=== PATIENT | female | born 1960 | race Caucasian/White ===

== ENCOUNTER 2016-08-29 15:57 | Emergency (ER) | payer BC ==
[2016-08-29 16:07] VITALS: BP 144/88
[2016-08-29] MEDS ORDERED: Ketorolac 60 MG/2 ML SDV IM ONE (16:34)
[2016-08-29] MEDS ORDERED: Dexamethasone 10 MG/ML SDV IM ONE (16:34)
--- NOTE | 2016-08-29 16:46 | EDM.PDOC ---
ED HPI GENERAL MEDICAL PROBLEM - General Chief Complaint: Back Pain or Injury Stated Complaint: BACK PAIN Time Seen by Provider: 08/29/16 16:33 Source of Information: Reports: Patient History Limitations: Reports: No Limitations - History of Present Illness INITIAL COMMENTS - FREE TEXT/NARRATIVE: PT STATES WHILE TRYING TO GET UP FROM RECLINER THIS AFTERNOON, SHE FELT PAIN IN LOWER BACK RADIATING TO LEFT LEG AT KNEE. DENIES FALL, ABD PAIN, OR LEG SWELLING. ADMITS TO EXCESSIVE WALKING AND FAVORING RIGHT LEG AND USING LEFT MORE. DENIES SADDLE ANESTHESIA, BOWEL OR BLADDER INCONT. Onset: Today Duration: Hour(s): Location: Reports: Back Quality: Reports: Ache, Other (SHOOTING) Severity: Mild Improves with: Reports: None Worsens with: Reports: Movement Context: Reports: Activity Associated Symptoms: Reports: No Other Symptoms Treatments RESPIRATORY SERVICES MANAGER: Reports: Other Medication(s) Left Lower Back Pain Score (Numeric/FACES): 10 - Related Data Allergies Allergy/AdvReac Type Severity Reaction Status Date / Time codeine Allergy Cannot Verified 08/29/16 16:05 Remember Home Meds: Home Meds Levothyroxine 75 mcg PO ACBREAKFAST 07/06/14 [History] Omeprazole [Prilosec] 20 mg PO DAILY 07/06/14 [History] Latanoprost [Latanoprost] 1 drop EYEBOTH BEDTIME 08/29/16 [History] Past Medical History HEENT History: Reports: Sinusitis Gastrointestinal History: Reports: GERD Musculoskeletal History: Reports: Back Pain, Chronic, Fracture, Other (See Below ) Other Musculoskeletal History: Broke both ankles when younger Neurological History: Reports: Concussion, Head Trauma Endocrine/Metabolic History: Reports: Hypothyroidism Hematologic History: Reports: Anesthesia Reaction, Blood Transfusion(s), Other ( See Below) Other Hematologic History: Throws up with anesthesia - Infectious Disease History Infectious Disease History: Reports: Chicken Pox, Influenza - Past Surgical History Head Surgeries/Procedures: Reports: None HEENT Surgical History: Reports: None GI Surgical History: Reports: Cholecystectomy Endocrine Surgical History: Reports: None Neurological Surgical History: Reports: None Musculoskeletal Surgical History: Reports: None Dermatological Surgical History: Reports: None Social & Family History - Family History Family Medical History: Noncontributory - Tobacco Use Smoking Status *Q: Former Smoker Years of Tobacco use: 10 Used Tobacco, but Quit: Yes Month Tobacco Last Used: october Second Hand Smoke Exposure: No - Caffeine Use Caffeine Use: Reports: Coffee - Alcohol Use Days Per Week of Alcohol Use: 0 - Recreational Drug Use Recreational Drug Use: No - Living Situation & Occupation Occupation: Employed ED ROS GENERAL - Review of Systems Review Of Systems: ROS reveals no pertinent complaints other than HPI. Constitutional: Reports: No Symptoms HEENT: Reports: No Symptoms Respiratory: Reports: No Symptoms Cardiovascular: Reports: No Symptoms Endocrine: Reports: No Symptoms GI/Abdominal: Reports: No Symptoms : Reports: No Symptoms Musculoskeletal: Reports: Back Pain, Leg Pain (LEFT) Skin: Reports: No Symptoms Neurological: Reports: No Symptoms Psychiatric: Reports: No Symptoms Hematologic/Lymphatic: Reports: No Symptoms Immunologic: Reports: No Symptoms ED EXAM,LOWER BACK PAIN/INJURY - Physical Exam Exam: See Below Exam Limited By: No Limitations General Appearance: Alert, WD/WN, No Apparent Distress Throat/Mouth: Normal Inspection, Normal Oropharynx, No Airway Compromise Respiratory/Chest: No Respiratory Distress GI/Abdominal: Normal Bowel Sounds, Soft, Non-Tender Back Exam: Paraspinal Tenderness (LEFT). No: CVA Tenderness (L), CVA Tenderness (R), Vertebral Tenderness Extremities: Normal Inspection, No Pedal Edema, Normal Capillary Refill Neurological: Alert, Normal Mood/Affect, Normal Dorsiflexion, Normal Plantar Flexion, No Motor/Sensory Deficits, Oriented x 3 Psychiatric: Normal Affect, Normal Mood Skin Exam: Warm, Dry, Intact, Normal Color, No Rash Lymphatic: No Adenopathy Course - Vital Signs Last Recorded V/S: Last Vital Signs Temp 98.5 F 08/29/16 16:01 Pulse 96 08/29/16 16:01 Resp 16 08/29/16 16:01 BP 144/88 H 08/29/16 16:01 Pulse Ox 96 08/29/16 16:01 - Orders/Labs/Meds Meds: Medications Discontinued Medications Generic Name Dose Route Start Last Admin Trade Name Chip PRN Reason Stop Dose Admin Dexamethasone 8 mg 08/29/16 16:34 Dexamethasone IM 08/29/16 16:35 ONETIME ONE Ketorolac Tromethamine 60 mg 08/29/16 16:34 Toradol IM 08/29/16 16:35 ONETIME ONE Departure - Departure Time of Disposition: 16:53 Disposition: Home, Self-Care 01 Condition: good Clinical Impression: Back pain of lumbar region with sciatica - Discharge Information Instructions: Back Pain, Adult, [id number], Radicular Pain Forms: ED Department Discharge Additional Instructions: FOLLOW UP WITH YOUR PCP TO SCHEDULE LUMBAR MRI - Assessment/Plan Assessment:: LUMBAR PAIN WITH RADICULOPATHY TO LLE Plan: ANTIINFLAMMATORY/ICE / MRI REFERRAL BY PCP
[2016-08-29] MEDS ORDERED: predniSONE 20 MG Tab ONE (16:59)
[2016-08-29] MEDS ORDERED: predniSONE 20 MG Tab PO ONE (17:01)
== END 2016-08-29 17:15 | disposition home or self-care (01) ==
LOC: KA.ED 15:57
DX: M54.42 Lumbago with sciatica, left side (principal); K21.9 Gastro-esophageal reflux disease without esophagitis; E03.9 Hypothyroidism, unspecified; Z90.49 Acquired absence of other specified parts of digestive tract; Z79.899 Other long term (current) drug therapy; Z87.891 Personal history of nicotine dependence; Z88.5 Allergy status to narcotic agent
CPT/HCPCS: 96372; 99283; A9270; J1100; J1885